=== PATIENT | male | born 1950 | race Caucasian/White ===

== ENCOUNTER 2017-03-31 11:41 | Outpatient (CLI) | payer BC ==
[2017-03-31 11:56] LABS: MEAN CORPUSCULAR HEMOGLOBIN 31.3 pg (28.0-34.0); MEAN CORPUSCULAR VOLUME 93.2 fl (80.0-100.0)
== END 2017-03-31 11:42 ==
LOC: LAB 11:41
PROVIDERS: ATTEND Family Medicine
DX: R04.0 Epistaxis (principal)
CPT/HCPCS: 36415; 85027

== ENCOUNTER 2017-04-10 17:02 | Emergency (ER) | payer BC ==
[2017-04-10] MEDS: OXYMETAZOLINE HCL 0.05% NASAL SPRAY NS ONE (17:25)
--- NOTE | 2017-04-10 18:12 | ED Physician Documentation ---
Epistaxis - HISTORIAN Historian: patient - HPI Stated Complaint: nose bleed Chief Complaint: Epistaxis Additional Information: off and on x 3 weeks Onset: days ago (21) Timing: still present Location: left Severity: mild (was worse prior to arrival) Associated Symptoms: denies: recent injury, recent illness, fever, chills, sweating, nausea Further Comments: no - ROS MS/SKIN/LYMPH: denies: excessive bruising, bleeding from gums, bleeding from GI , bleeding from , swollen glands, joint pain EYES/ENT: other (chronic left episodic epistaxis) GI/: denies: black stool, problems urinating CVS/RESP: denies: chest pain, difficulty breathing NEURO/PSYCH: denies: dizziness, anxiety, depression - PAST HX Past History: previous nosebleeds Other History: other (cva (recent), gerd, htn, hyperlipidemia) Immunizations: referred to PCP Allergies/Adverse Reactions: Allergies Allergy/AdvReac Type Severity Reaction Status Date / Time No Known Drug Allergies Allergy Verified 04/10/17 17:44 - SOCIAL HX Smoking History: non-smoker Alcohol Use: none Drug Use: none - FAMILY HX Family History: Yes - VITAL SIGNS Vital Signs: Vital Signs Temp Pulse Resp BP Pulse Ox 98.1 F 95 H 18 116/88 93 04/10/17 17:02 04/10/17 17:02 04/10/17 17:02 04/10/17 17:02 04/10/17 17:02 - REVIEWED ASSESSMENTS Nursing Assessment Reviewed: Yes Vitals Reviewed: Yes Progress - Results/Orders Results/Orders: no testing ordered - Progress Progress: Pt. given 4 separate doses of afrin spray and direct pressure for 20 minutes after clot remval initially. Bleeding stopped. Left nares packed with Vaseline gauze. Critical Care Note - Critical Care Note Total Time (mins): 0 ED Results Lab/Radiology - Lab Results Lab Results: none ordered - Radiology Radiology Impressions: none ordered - Orders Orders: ED Orders Category Date Time Status Oxymetazoline HCl [Afrin 0.05%] Med 04/10/17 17:18 Discontinued 1 spray NS NOW ONE Epistaxis Physical Exam - EXAM General Appearance: no acute distress Nose: no specific site found, dried blood, fresh clots (L), active bleeding (L) , minimal, other (septal deviation left) Head/Neck: atraumatic, thyroid nml. No: facial swelling, erythema, pain on percussion over sinuses, thyromegaly Eyes/Ears: eyes nml inspection, PERRL, TM nml Mouth: lips nml, gums nml, bleeding from nasopharynx (mild) Neuro/Psych: oriented x3, neuro intact, mood/affect nml Respiratory: no resp distress, chest non-tender, breath sounds normal CVS: reg rate & rhythm, heart sounds normal, equal pulses, no murmur, no gallop , PMI nml, no JVD Abdomen: non-tender, no organomegaly Skin: nml color, no skin rash Discharge Clincal Impression: Epistaxis Referrals: Lor Ley MD [Primary Care Provider] - 2 Days Comments: Keep Vaseline gauze in lace until tomorrow afternoon. Moisten with Afrin spray and remove packing. Return to ER if bleeding restarts. Condition: Stable Disposition: 01 HOME, SELF-CARE Decision to Admit: NO Decision Time: 18:12
[2017-04-10 19:16] VITALS: BP 121/85
== END 2017-04-10 18:35 | disposition home or self-care (01) ==
LOC: ED 17:02
DX: R04.0 Epistaxis (principal)
CPT/HCPCS: 99282